=== PATIENT | male | born 1990 | race African-American/Black ===

== ENCOUNTER 2022-03-15 01:25 | Emergency (ER) | payer OTHER ==
[~2022-03-15] VITALS: Ht 165.1 cm; Wt 57.0 kg
[2022-03-15] MEDS ORDERED: CEFTRIAXONE SODIUM 500 MG/VIAL IM ONE (05:30)
[2022-03-15] MEDS ORDERED: DOXYCYCLINE HYCLATE 100MG CAPSULE PO ONE (05:30)
[2022-03-15 05:41] LABS: CLARITY URINE CLEAR (CLEAR); COLOR URINE DARK YELLOW (YELLOW); KETONES URINE TRACE (NEGATIVE); LEUKOCYTE ESTERASE URINE NEGATIVE (NEGATIVE); NITRITE URINE NEGATIVE (NEGATIVE); OCCULT BLOOD URINE TRACE (NEGATIVE); PH URINE 5.5 (4.5-8.0); PROTEIN URINE 1+ (NEGATIVE); SPECIFIC GRAVITY URINE 1.036 (1.005-1.030)
[2022-03-15] MEDS ORDERED: DOXY100C5 MT (09:11)
[2022-03-15 09:31] VITALS: BP 116/78
[2022-03-18 04:08] LABS: NEISSERIA GONORRHOEAE NAA Negative (Negative)
== END 2022-03-15 09:32 | disposition home or self-care (01) ==
LOC: ER 01:25
DX: Z20.2 Contact with and (suspected) exposure to infections with a predominantly sexual mode of transmission (principal)
CPT/HCPCS: 81003; 86592; 86593; 86780; 87491; 87591; 96372; 99283; J0696

== ENCOUNTER 2022-11-09 14:20 | Emergency (ER) | payer MEDICAID, OTHER ==
[~2022-11-09] VITALS: Ht 165.1 cm; Wt 59.0 kg
[~2022-11-09 14:20] MED LIST: DOXY100C5 MT
[2022-11-09 16:45] VITALS: BP 121/84
[2022-11-09] MEDS ORDERED: KETOROLAC 30MG/ML VIAL IM ONE (16:45)
[2022-11-09] MEDS ORDERED: NAPR-1176 PO (17:36)
== END 2022-11-09 18:12 | disposition home or self-care (01) ==
LOC: ER 14:20
DX: S20.211A Contusion of right front wall of thorax, initial encounter (principal); S00.03XA Contusion of scalp, initial encounter; Y04.2XXA Assault by strike against or bumped into by another person, initial encounter; Y93.89 Activity, other specified; Y92.018 Other place in single-family (private) house as the place of occurrence of the external cause
CPT/HCPCS: 71045; 96372; 99283; J1885